=== PATIENT | male | born 1985 | race Caucasian/White ===

== ENCOUNTER 2025-03-12 08:11 | Emergency (ER) | payer SELFPAY ==
[2025-03-12] MEDS ORDERED: KETOROLAC 30 MG/ML INJ ONE (08:19)
[2025-03-12] MEDS ORDERED: NA CHLORIDE 0.9% 1,000 ML ONE (08:19)
[2025-03-12 08:44] LABS: Absolute Lymphocytes (CBC) 0.7 K/uL (0.7-4.9); Hematocrit 44.5 % (39.6-49.0); Hemoglobin 14.9 g/dL (13.6-17.9); MCH 33.5 pg (27.0-35.0); MCHC 33.6 g/dL (32.0-36.0); MCV 99.9 fL (80-100); MPV 7.4 fL (7.6-11.3); Nucleated RBC Absolute Count 0.0 (0-0); Nucleated Red Blood Cells % 0.0 % (0-0); RBC Red Blood Cell Count 4.45 M/uL (4.33-5.43); White Blood Count 8.20 thou/uL (4.3-10.9)
--- NOTE | 2025-03-12 08:52 | RAD REPORT ---
EXAMINATION: ONE VIEW CHEST XR CLINICAL INDICATION: CHEST PAIN TECHNIQUE: Frontal chest projection is submitted. Examination is limited by patient positioning and t echnique. COMPARISON: No prior exam. FINDINGS: The lungs are well inflated and clear. The heart is normal in size. No displaced fractures identified . IMPRESSION: No acute intrathoracic abnormalities.
[2025-03-12 09:01] LABS: Anion Gap 14.1 mEq/L (5.0-15.0); BUN Blood Urea Nitrogen 7.0 mg/dL (7-18); Glucose Level 82.0 mg/dL (74-106); Potassium 4.1 mEq/L (3.5-5.1); Troponin High Sensitivity 8.6 pg/mL (<58.9)
--- NOTE | 2025-03-12 09:08 | ER ---
Nurse's Notes [facility] Name: Hugh Morocho Age: 39 yrs Sex: Male : 1985 Arrival Date: 03/12/2025 Time: 08:11 Bed 8 Private MD: Diagnosis: Chest pain, unspecified;Alcohol abuse, uncomplicated Presentation: 03/12 08:31 Chief complaint: Patient states: c/o chest pain and L arm weakness when EMS arrived, kb4 upon arrival to Hospital pt denies chest pain but states " my left pinky and ring finger are tingly ", pt requesting to be referred to rehab for alcohol abuse. Coronavirus screen: At this time, unable to obtain information related to travel outside the [place] Ebola Screen: No symptoms or risks identified at this time. Initial Sepsis Screen: Does the patient meet any 2 criteria? No. Patient's initial sepsis screen is negative. Does the patient have a suspected source of infection? No. Patient's initial sepsis screen is negative. Risk Assessment: Do you want to hurt yourself or someone else? Patient reports no desire to harm self or others. Onset of symptoms was March 12, 2025. 08:31 Method Of Arrival: EMS: [facility] kb4 08:31 Acuity: VALERIE 3 kb4 Triage Assessment: 08:35 General: Appears in no apparent distress. comfortable, Behavior is calm, cooperative. kb4 Pain: Complains of pain in left hand. Cardiovascular: Patient's skin is warm and dry. Rhythm is regular. Respiratory: Airway is patent Respiratory effort is even, unlabored, Respiratory pattern is regular, symmetrical. Historical: - Allergies: 08:35 No Known Allergies; kb4 - PSHx: 08:35 Alcohol Abuse; kb4 - Immunization history:: Adult Immunizations up to date. - Infectious Disease History:: Denies. - Social history:: Smoking status: Patient reports the use of cigarette tobacco products, smokes one-half pack cigarettes per day, Patient uses alcohol, on a daily basis. street drugs, marijuana. Screenin:38 [facility] ED Fall Risk Assessment (Adult) History of falling in the last 3 months, kb4 including since admission No falls in past 3 months (0 pts) Confusion or Disorientation No (0 pts) Intoxicated or Sedated No (0 pts) Impaired Gait No (0 pts) Mobility Assist Device Used No (0 pt) Altered Elimination No (0 pt) Score/Fall Risk Level 0 - 2 = Low Risk. Abuse screen: Denies threats or abuse. Denies injuries from another. Nutritional screening: No deficits noted. Tuberculosis screening: No symptoms or risk factors identified. 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 kb4 0 in. ; Pain 3/10; 09:26 BP 137 / 88; Pulse 85; Resp 18; Pulse Ox 98% ; kb4 08:31 Body Mass Index 25.09 (83.91 kg, 182.88 cm) kb4 08:31 Pain Scale: Adult kb4 ED Course: 08:13 Patient arrived in ED. cj3 08:13 Niraj Rausch FNP-C is [facility]. dr5 08:13 Randall Butt MD is Attending Physician. dr5 08:14 Sarah Vuong, LI is Primary Nurse. kb4 08:33 XRAY Chest (1 view) In Process Unspecified. EDMS 08:35 Triage completed. kb4 08:35 Arm band placed on left wrist. kb4 08:38 Patient has correct armband on for positive identification. Client placed on continuous kb4 cardiac and pulse oximetry monitoring. NIBP monitoring applied. 08:38 Maintain EMS IV. Dressing intact. Good blood return noted. Site clean \\T\\ dry. Gauge \\T\\ kb 4 site: 20g LAC . Flushed with 10 mL NS IV is patent, is intact. Patient maintains SpO2 saturation greater than 95% on room air. 09:26 Provided Education on: INFORMATION GIVEN ON REHAB OPTIONS . kb4 09:26 No provider procedures requiring assistance completed. IV discontinued, intact, kb4 bleeding controlled, No redness/swelling at site. Pressure dressing applied. Administered Medications: 08:31 Drug: NS 0.9% IV 1000 ml IV at 1000 ml once; to be given as a bolus over 60 minutes kb4 Route: IV; Rate: 1000 ml; Site: left antecubital; 09:29 Follow up: Response: No adverse reaction; IV Status: Completed infusion kb4 08:31 Drug: Ketorolac IVP 15 mg IVP once Route: IVP; Site: left antecubital; kb4 09:29 Follow up: Response: No adverse reaction kb4 Medication: :26 VIS not applicable for this client. kb4 Outcome: : Discharge ordered by . dr5 09:26 Discharged to home ambulatory, kb4 09:26 Condition: good :26 Discharge instructions given to patient, Instructed on discharge instructions, follow up and referral plans. Demonstrated understanding of instructions, follow-up care, :29 Patient left the ED. kb4 Signatures: Dispatcher [employer] EDMS Niraj Rausch, REFRIGERATOR MOVER-C REFRIGERATOR MOVER-Cdr5 Sarah Vuong RN RN kb4 Zayra Krueger cj3
--- NOTE | 2025-03-12 09:08 | EDPHYS ---
Physician Documentation [facility] Name: Hugh Morocho Age: 39 yrs Sex: Male : 1985 Arrival Date: 03/12/2025 Time: 08:11 Bed 8 Private MD: ED Physician Randall Butt HPI: 03/12 08:17 This 39 yrs old Male presents to ER via EMS with complaints of Chest Pain. dr5 08:17 Onset: The symptoms/episode began/occurred acutely. Patient is a 39-year-old male with dr5 no Kaela history coming in with left-sided chest pain that lasted approximately 2 minutes when the police were called. EMS reports given 324 of chewable aspirin that resolved his pain. Patient reports that he would like to have resources for alcohol rehab. Patient reports that he has been drinking heavily over the last 5 days due to stressful situations at home including issues with his girlfriend, the straightedge machine operator helper from's passing away. Patient denies suicidal or homicidal ideation.. Historical: - Allergies: 08:35 No Known Allergies; kb4 - PSHx: 08:35 Alcohol Abuse; kb4 - Immunization history:: Adult Immunizations up to date. - Infectious Disease History:: Denies. - Social history:: Smoking status: Patient reports the use of cigarette tobacco products, smokes one-half pack cigarettes per day, Patient uses alcohol, on a daily basis. street drugs, marijuana. ROS: 08:17 Constitutional: as per hpi dr5 Exam: 08:17 Constitutional: This is a well developed, well nourished patient who is awake, alert, dr5 and in no acute distress. Head/Face: Normocephalic, atraumatic. Eyes: Pupils equal round and reactive to light, extra-ocular motions intact. Lids and lashes normal. Conjunctiva and sclera are non-icteric and not injected. Cornea within normal limits. Periorbital areas with no swelling, redness, or edema. Neck: Trachea midline, no thyromegaly or masses palpated, and no cervical lymphadenopathy. Supple, full range of motion without nuchal rigidity, or vertebral point tenderness. No Meningismus. Chest/axilla: Normal chest wall appearance and motion. Nontender with no deformity. No lesions are appreciated. Cardiovascular: Regular rate and rhythm with a normal S1 and S2. Normal PMI, no JVD. No pulse deficits. Respiratory: Lungs have equal breath sounds bilaterally, clear to auscultation. No rales, rhonchi or wheezes noted. No increased work of breathing, no retractions or nasal flaring. Back: No spinal tenderness. No costovertebral tenderness. Full range of motion. Skin: Warm, dry with normal turgor. Normal color with no rashes, no lesions, and no evidence of cellulitis. MS/ Extremity: Pulses equal, no cyanosis. Neurovascular intact. Full, normal range of motion. Neuro: Awake and alert, GCS 15, oriented to person, place, time, and situation. Cranial nerves II-XII grossly intact. Motor strength 5/5 in all extremities. Sensory grossly intact. Cerebellar exam normal. Normal gait. Vital Signs: 08:31 BP 120 / 84; Pulse 84; Resp 18; Temp 97.1; Pulse Ox 98% ; Weight 83.91 kg; Height 6 ft. kb4 0 in. ; Pain 3/10; 09:26 BP 137 / 88; Pulse 85; Resp 18; Pulse Ox 98% ; kb4 08:31 Body Mass Index 25.09 (83.91 kg, 182.88 cm) kb4 08:31 Pain Scale: Adult kb4 MDM: 08:14 Medical Screening Exam initiated dr5 09:10 Differential diagnosis: STEMI, NSTEMI, Alcohol Abuse, Dehydration, Acute Kidney Injury, dr5 PNA, costochondritis. Data reviewed: vital signs, nurses notes, lab test result(s), cardiac enzymes, troponin i, CBC, white blood cell count, hemoglobin, hematocrit, platelets, electrolytes, sodium, potassium, chloride, serum bicarbonate, BUN, creatinine, serum glucose, EKG, radiologic studies, plain films. Consideration of Admission/Observation Escalation of care including admission/observation considered. Escalation considered patient continued have chest pain or abnormality on EKG. I considered the following discharge prescriptions or medication management in the emergency department I discussed and recommended Over The Counter medications, Medications were administered in the Emergency Department. See MAR. Independent interpretation of the following test(s) in the Emergency Department X-Ray: My interpretation is Independent interpretation of x-ray does not reveal infiltrates concerning for pneumonia.. Care significantly affected by the following Social Determinants of Health: Poor access to healthcare and/or lack of insurance, Poor access to transportation, Misuse of alcohol and/or drugs, Problems related to employment. Counseling: I had a detailed discussion with the patient and/or guardian regarding the historical points, exam findings, and any diagnostic results supporting the discharge/admit diagnosis, the presence of at least one elevated blood pressure reading (>120/80) during this emergency department visit, lab results, radiology results, the need for outpatient follow up, for definitive care, a family practitioner, to return to the emergency department if symptoms worsen or persist or if there are any questions or concerns that arise at home. Medication response: NS. Response to treatment: the patient's symptoms have resolved after treatment, the patient's condition has returned to base line, the patient is now symptom free. Special discussion: I discussed with the patient/guardian in detail that at this point there is no indication for admission to the hospital. It is understood, however, that if the symptoms persist or worsen the patient needs to return immediately for re-evaluation. Based on the history and exam findings, there is no indication for further emergent testing or inpatient evaluation. I discussed with the patient/guardian the need to see the primary care provider for further evaluation of the symptoms. ED course: Gave patient resources for free alcohol and drug rehab centers in [place]. Recommended primary care doctor appointment this next week for further management. Patient has not had chest pain throughout duration of ER. Patient states he is much better. All questions answered. Strict ER precautions given. 03/12 08:14 Order name: Basic Metabolic Panel; Complete Time: :03/12 08:14 Order name: CBC with Diff; Complete Time: 03/12 08:14 Order name: Troponin HS; Complete Time: :03/12 08:14 Order name: XRAY Chest (1 view); Complete Time: 03/12 08:14 Order name: Cardiac monitoring; Complete Time: 03/12 08:14 Order name: EKG - Nurse/Tech; Complete Time: 03/12 08:14 Order name: IV Saline Lock; Complete Time: 03/12 08:14 Order name: Labs collected and sent; Complete Time: [facility] 03/12 08:14 Order name: O2 Per Protocol; Complete Time: 03/12 08:14 Order name: O2 Sat Monitoring; Complete Time: 08:31 dr5 Administered Medications: 08: Drug: NS 0.9% IV 1000 ml IV at 1000 ml once; to be given as a bolus over 60 minutes kb4 Route: IV; Rate: 1000 ml; Site: left antecubital; 09:29 Follow up: Response: No adverse reaction; IV Status: Completed infusion kb4 08:31 Drug: Ketorolac IVP 15 mg IVP once Route: IVP; Site: left antecubital; kb4 09:29 Follow up: Response: No adverse reaction kb4 Disposition: :25 Co-signature as Attending Physician, Randall Butt MD I agree with the assessment and marcie plan of care. Disposition Summary: 03/12/25 09:07 Discharge Ordered Notes: Location: Home dr5 Condition: Stable dr5 Diagnosis - Chest pain, unspecified dr5 - Alcohol abuse, uncomplicated dr5 Followup: dr5 - With: Emergency Department - When: As needed - Reason: Worsening of condition Followup: dr5 - With: Private Physician - When: 1 - 2 days - Reason: Recheck today's complaints, Continuance of care, Re-evaluation by your physician Discharge Instructions: - Discharge Summary Sheet dr5 - Nonspecific Chest Pain, Adult dr5 - Alcohol Abuse and Nutrition dr5 Forms: - Medication Reconciliation Form dr5 - Patient Portal Instructions dr5 - Leadership Thank You Letter dr5 Signatures: Dispatcher [employer] EDRandall Snider MD MD cha Rhodes, Dustin, OPHTHALMIC TECHNICIAN-C OPHTHALMIC TECHNICIAN-Cdr5 Sarah Vuong, RN RN kb4 Corrections: (The following items were deleted from the chart) 08:14 08:14 BASIC METABOLIC PANEL+C.LAB.BRZ ordered. EDMS EDMS 08:14 08:14 CBC+H.LAB.BRZ ordered. EDMS EDMS 08:14 08:14 Troponin High Sensitivity+C.LAB.BRZ ordered. EDMS EDMS 08:14 08:14 Chest Single View+RAD.RAD.BRZ ordered. EDMS EDMS
[2025-03-12 15:23] VITALS: TEMP 97.1; O2SAT 98
[2025-03-12 15:24] VITALS: BP 137/88
== END 2025-03-12 09:29 | disposition home or self-care (01) ==
LOC: ER 08:11
DX: R07.89 Other chest pain (principal); F10.10 Alcohol abuse, uncomplicated; F17.210 Nicotine dependence, cigarettes, uncomplicated
CPT/HCPCS: 36415; 71045; 80048; 84484; 85025; 93005; 96361; 96374; 99284; J1885; J7030